=== PATIENT | female | born 1960 | race Caucasian/White ===

== ENCOUNTER 2019-07-16 20:06 | Emergency (ER) | payer BC ==
[2019-07-16] MEDS ORDERED: Acetaminophen/HYDROcodone 325-10 MG Tab PO ONE (20:07)
[2019-07-16] MEDS ORDERED: Lidocaine 1% 30 ML SDV INJECT ONE (20:51)
[2019-07-16] MEDS ORDERED: Diphtheria,Pertussis(Acell),Tetanus Vaccine 0.5 ML SDV IM ONE (21:23)
[2019-07-16] MEDS ORDERED: ceFAZolin 1 GM Vial IM ONE (22:00)
--- NOTE | 2019-07-16 22:10 | EDM.PDOC ---
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 [No Known Home Meds] 07/16/19 [History] Past Medical History HEENT History: Reports: Sinusitis Other HEENT History: Rhino plasty. 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 - Past Surgical History GI Surgical History: Reports: Appendectomy Social & Family History - Family History Family Medical History: Noncontributory - Tobacco Use Smoking Status *Q: Never Smoker Second Hand Smoke Exposure: No - Caffeine Use Caffeine Use: Reports: Coffee, Soda - Recreational Drug Use Recreational Drug Use: No ED ROS GENERAL - Review of Systems Review Of Systems: ROS reveals no pertinent complaints other than HPI. ED EXAM, SKIN/RASH Exam: See Below Exam Limited By: No Limitations General Appearance: Alert, WD/WN, Mild Distress Ears: Hearing Grossly Normal Throat/Mouth: Normal Voice, No Airway Compromise Head: Atraumatic Neck: Non-Tender, Full Range of Motion Respiratory/Chest: No Respiratory Distress Cardiovascular: Regular Rate, Rhythm GI/Abdominal: Soft, Non-Tender Extremities: Other (right 5th base macerated lac, NV wnl, ROM normal) Neurological: Alert Psychiatric: Normal Affect, Normal Mood Skin: Warm, Dry, Normal Color Location, Skin: Upper Extremity, Right Lymphatic: No Adenopathy ED SKIN PROCEDURES - Laceration/Wound Repair Right Digit - 5th (Baby) Appearance: Subcutaneous, Irregular, Mildly Contaminated Distal NVT: Neuro & Vascular Intact, No Tendon Injury Anesthetic Type: Local Local Anesthesia - Lidocaine (Xylocaine): 1% Plain Local Anesthetic Volume: 5cc Skin Prep: Chlorhexidine (Hibiciens) Saline Irrigation (cc's): 20 Exploration/Debridement/Repair: Wound Explored, Minimally Undermined, No Foreign Material Found, Multiple Flaps Aligned Closed with: Sutures Lac/Wound length In cm: 2 Suture Size: 3-0 Suture Type: Nylon, Interrupted Sterile Dressing Applied: Nurse Tetanus Status Addressed: Yes Complications: No Course - Vital Signs Last Recorded V/S: Last Vital Signs Temp 37.0 C 07/16/19 20:33 Pulse 76 07/16/19 20:33 Resp 18 07/16/19 20:33 BP 138/64 07/16/19 20:33 Pulse Ox 96 07/16/19 20:33 - Orders/Labs/Meds Meds: Medications Discontinued Medications Generic Name Dose Route Start Last Admin Trade Name Scarlett PRN Reason Stop Dose Admin Hydrocodone Bitart/Acetaminophen Confirm 07/16/19 22:25 07/16/19 22:30 [place] 325-10 Mg Administered 07/16/19 22:26 Not Given Dose 1 tab .ROUTE .STK-MED ONE Hydrocodone Bitart/Acetaminophen 1 tab 07/16/19 20:07 [place] 325-10 Mg PO 07/16/19 20:08 .STK-MED ONE Bacitracin 1 dose 07/16/19 22:24 07/16/19 22:34 Bacitracin Oint 1 Gm TOP 07/16/19 22:25 1 dose ONETIME ONE Administration Cefazolin Sodium 1 gm 07/16/19 22:00 07/16/19 22:18 Ancef IM 07/16/19 22:01 Not Given ONETIME ONE Diphtheria/Tetanus/Acell Pertussis 0.5 ml 07/16/19 21:23 07/16/19 21:29 Adacel IM 07/16/19 21:24 0.5 ml .ONCE ONE Administration Cefazolin Sodium/Dextrose 1 gm 50 mls @ 100 mls/hr 07/16/19 22:13 07/16/19 22 :22 / Premix IV 07/16/19 22:42 100 mls/hr ONETIME ONE Administration Lidocaine HCl 30 ml 07/16/19 20:51 07/16/19 21:23 Xylocaine-Mpf 1% INJECT 07/16/19 20:52 30 ml ONETIME ONE Administration Departure - Departure Time of Disposition: 22:08 Disposition: Home, Self-Care 01 Condition: Good Clinical Impression: Finger laceration Qualifiers: Encounter type: initial encounter Finger: little finger Damage to nail status: without damage Foreign body presence: without foreign body Laterality: right Qualified Code(s): S61.216A - Laceration without foreign body of right little finger without damage to nail, initial encounter - Discharge Information Instructions: Sutured Wound Care, [id number] Forms: ED Department Discharge Additional Instructions: 1) keep wound clean dry cover 2) wound check if looks infected 3) suture removal 10 days rx given; keflex 250mg qid x 40 rx togo; norco 10 x 1
[2019-07-16] MEDS ORDERED: ceFAZolin 1 GM in Premix Bag 1 BAG IV ONE (22:13)
[2019-07-16] MEDS ORDERED: Bacitracin Oint 1 GM U/D Packet TOP ONE (22:24)
[2019-07-16] MEDS ORDERED: Acetaminophen/HYDROcodone 325-10 MG Tab ONE (22:25)
== END 2019-07-16 22:55 | disposition home or self-care (01) ==
LOC: DL.ED 20:06
DX: S61.216A Laceration without foreign body of right little finger without damage to nail, initial encounter (principal); W26.8XXA Contact with other sharp object(s), not elsewhere classified, initial encounter
CPT/HCPCS: 12001; 90471; 90715; 96365; 99283; A9270; J0690; J2001; 12041

== ENCOUNTER 2024-09-17 14:44 | Emergency (ER) | payer BC | END 2024-09-17 16:46 | disposition home or self-care (01) | LOC: DL.ED 14:44 | DX: S70.02XA Contusion of left hip, initial encounter (principal); Z79.02 Long term (current) use of antithrombotics/antiplatelets; Z90.49 Acquired absence of other specified parts of digestive tract; W01.0XXA Fall on same level from slipping, tripping and stumbling without subsequent striking against object, initial encounter | CPT/HCPCS: 99283 ==